=== PATIENT | male | born 1945 | race Caucasian/White ===

== ENCOUNTER 2022-02-14 10:52 | Emergency (ER) | payer OTHER ==
[~2022-02-14] VITALS: Ht 165.1 cm; Wt 86.2 kg
[2022-02-14] MEDS ORDERED: COZAAR25 MG (11:00)
== END 2022-02-14 15:58 | disposition home or self-care (01) ==
LOC: ER 10:52
DX: K52.9 Noninfective gastroenteritis and colitis, unspecified (principal); I10 Essential (primary) hypertension